=== PATIENT | male | born 2000 | race Caucasian/White ===

== ENCOUNTER 2022-06-10 15:10 | Emergency (ER) | payer OTHER ==
[~2022-06-10] VITALS: Ht 172.7 cm; Wt 85.3 kg
[2022-06-10] MEDS ORDERED: AUGMENTIN 875 MG TAB PO ONE (16:20)
[2022-06-10] MEDS ORDERED: DERMABOND TOPICAL SKIN ADHESIVE TOP ONE (16:20)
[2022-06-10] MEDS ORDERED: AMOX875T2 PO (17:49)
[2022-06-10 17:59] VITALS: BP 125/83
== END 2022-06-10 18:01 | disposition home or self-care (01) ==
LOC: M ED 15:10
DX: S61.432A Puncture wound without foreign body of left hand, initial encounter (principal); W54.0XXA Bitten by dog, initial encounter; Y92.009 Unspecified place in unspecified non-institutional (private) residence as the place of occurrence of the external cause; Z79.2 Long term (current) use of antibiotics